=== PATIENT | female | born 1995 | race Caucasian/White ===

== ENCOUNTER 2020-11-04 22:58 | Emergency (ER) | payer BC ==
[~2020-11-04] VITALS: Ht 175.3 cm; Wt 65.8 kg
[2020-11-04 23:11] VITALS: Ht 175.3 cm; Wt 65.8 kg
[2020-11-05] MEDS ORDERED: ACETAMINOPHEN-H1 TA1 PO (00:53)
[2020-11-05] MEDS ORDERED: NAPROXEN500 MG PO (00:53)
[2020-11-05 01:09] VITALS: BP 114/75
== END 2020-11-05 01:10 | disposition home or self-care (01) ==
LOC: ED 22:58
DX: S93.402A Sprain of unspecified ligament of left ankle, initial encounter (principal); S60.512A Abrasion of left hand, initial encounter; R07.89 Other chest pain; M25.552 Pain in left hip; V23.4XXA Motorcycle driver injured in collision with car, pick-up truck or van in traffic accident, initial encounter; Y93.55 Activity, bike riding; Y92.488 Other paved roadways as the place of occurrence of the external cause; Y99.8 Other external cause status
CPT/HCPCS: J1885